=== PATIENT | female | born 1985 | race Caucasian/White ===

== ENCOUNTER 2023-03-30 06:19 | Inpatient (IN) | payer BC ==
[2023-03-30 06:50] VITALS: BMI 26.9
[2023-03-30] MEDS ORDERED: HYDROcodone/Acetaminophen 5/325 mg Tablet PO PRN ×4 (08:31→12:02)
[2023-03-30] MEDS ORDERED: hydrALAZINE 20 MG/ML VIAL SLOW IVP PRN ×2 (08:31→12:02)
[2023-03-30] MEDS ORDERED: Methylergonovine 0.2 MG/ML VIAL IM PRN ×2 (08:31→12:02)
[2023-03-30] MEDS ORDERED: Lactated Ringer's 1,000 ML IV PRN (08:31)
[2023-03-30] MEDS ORDERED: Ondansetron PF 4 MG/2 ML Vial IVP PRN (08:31)
[2023-03-30] MEDS ORDERED: Misoprostol 200 MCG TAB PR PRN (08:31)
[2023-03-30] MEDS ORDERED: fentaNYL 50 mcg/mL 1 mL Vial SLOW IVP PRN (08:31)
[2023-03-30] MEDS ORDERED: Ibuprofen 800 MG TAB PO PRN (08:31)
[2023-03-30] MEDS ORDERED: Promethazine HCl 25 MG/ML VIAL IM PRN (08:31)
[2023-03-30] MEDS ORDERED: Lidocaine 1% (PF) 30 ML VIAL SC PRN (08:31)
[2023-03-30] MEDS ORDERED: Oxytocin 30 units/NS 500 ML 500 ML IV SCH ×2 (08:45)
[2023-03-30 09:28] LABS: Hematocrit 38.3 % (34.9-44.5); Hemoglobin 12.6 g/dL (12.0-15.5); Mean Corpuscular HGB CONC 32.9 g/dL (32.0-36.0); Mean Corpuscular Hemoglobin 25.8 pg (27.0-33.0); Mean Corpuscular Volume 78.5 fl (81.6-98.3); Mean Platelet Volume 10.4 fl (7.4-10.4); Platelet Count 203 10x3/uL (150-450); RBC Distribution Width 13.6 % (11.5-14.5); Red Blood Cell (RBC) Count 4.88 10x6/uL (3.90-5.03); White Blood Cell (WBC) Count 16.1 10x3/uL (3.5-10.5)
[2023-03-30 10:01] LABS: HBSAg Index 0.21 S/CO (0-0.99); Hep B Surf Ag - L&D Non-Reactive S/CO (NonReactive)
[2023-03-30 10:02] LABS: Syphilis Antibody Nonreactive (Nonreactive); Syphilis Antibody Index 0.03 S/CO (<1.00 Non-Reactive)
[2023-03-30] MEDS ORDERED: Bisacodyl 10 MG SUPP PR PRN (12:02)
[2023-03-30] MEDS ORDERED: Misoprostol 200 MCG TAB VAG PRN (12:02)
[2023-03-30] MEDS ORDERED: Milk Of Magnesia 30 ML UDCUP PO PRN (12:02)
[2023-03-30] MEDS ORDERED: Boostrix 0.5 ML (Tdap) VIAL (>/=7 yrs of age) IM ONE (12:02)
[2023-03-30] MEDS ORDERED: Benzocaine-Menthol 82.5 ML CAN TOP PRN (12:02)
[2023-03-30] MEDS ORDERED: Lanolin Ointment 7 GM TUBE TOP PRN (12:02)
[2023-03-30] MEDS: Ibuprofen 800 MG TAB PO SCH ×2 (13:20→21:08)
[2023-03-30] MEDS: Ferrous Sulfate 325 MG TAB PO SCH (16:21)
[2023-03-30] MEDS: Docusate 100 MG CAP PO SCH (21:08)
[2023-03-31] MEDS: Ibuprofen 800 MG TAB PO SCH ×2 (05:00→13:40)
[2023-03-31] MEDS: Ferrous Sulfate 325 MG TAB PO SCH (07:12)
[2023-03-31 07:24] VITALS: BP 117/57; TEMP 97.7
[2023-03-31] MEDS: Docusate 100 MG CAP PO SCH (08:16)
[2023-03-31] MEDS ORDERED: Prenatal Vitamin 1 TAB PO SCH (09:00)
[2023-03-31] MEDS ORDERED: Milk Of Magnesia 30 ML UDCUP PO PRN (13:45)
== END 2023-03-31 15:05 | disposition home or self-care (01) | DRG 807 ==
LOC: CSHLD/OP 06:19 → CSHLD 07:29 → CSHPP 12:45
PROVIDERS: ADMIT Obstetrics & Gynecology; ATTEND Obstetrics & Gynecology
PROC: 10E0XZZ Delivery of Products of Conception, External Approach (ICD-10-PCS; principal; 2023-03-30)
PROC: 3E0334Z Introduction of Serum, Toxoid and Vaccine into Peripheral Vein, Percutaneous Approach (ICD-10-PCS; 2023-03-30)
DX: O42.02 Full-term premature rupture of membranes, onset of labor within 24 hours of rupture (principal); Z37.0 Single live birth; Z88.2 Allergy status to sulfonamides; Z3A.39 39 weeks gestation of pregnancy; Z29.13 Encounter for prophylactic Rho(D) immune globulin
CPT/HCPCS: 36415; 85027; 85461; 86780; 86850; 86870; 86900; 86901; 87340; 90384; 96372; 99285